=== PATIENT | male | born 1965 | race Caucasian/White ===

== ENCOUNTER 2016-05-15 04:31 | Inpatient (IN) | payer OTHER ==
[~2016-05-15] VITALS: Ht 177.8 cm; Wt 122.9 kg
[~2016-05-15 04:31] MED LIST: AMLO10TA4 PO; ARIP5TAB6 PO; ASPI-482 PO; BUPR300T4 PO; CEPH-264 PO; DEXT10TA2 PO; ESCI20TA PO; FAMO-63 NG; FLUT9.9S NS; Fentanyl TD; GABA-586 PO; HYDR-2666 PO; Hydrochlorothiazide PO; LABE200T24 PO; LORA2TAB PO; METH-38 PO; MORP15TA PO; MORP15TA3 PO; MULT-91 PO; NORT25CA PO; NYST60PO TP; POLY17PO5 PO; POTA20TA4 PO; SENN1TAB7 PO; SIMV40TA3 PO; TRAZ50TA15 PO; VALS160T3 NG; VENTOLIN HFA18 GM IH
[2016-05-15 05:20] LABS: OBC FLU VALID
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
[2016-05-15 05:51] LABS: BILIRUBIN,URINE NEGATIVE (NEG); GLUCOSE,URINE NEGATIVE (NEG); NITRITE,URINE NEGATIVE (NEG); PH,URINE 5.5; PROTEIN,URINE NEGATIVE (NEG-TRACE); UROBILINOGEN,URINE 0.2 mg/dL (0.2 mg/dL)
[2016-05-15] MEDS ORDERED: IV NORMAL SALINE 1000ML BAG 1,000 ML IV ONE (06:00)
[2016-05-15 06:07] LABS: BACTERIA,URINE 0 /HPF (0-FEW); RBC,URINE 0 /HPF (0-2); SQUAMOUS EPITHELIAL CELL,UR FEW /LPF; WBC,URINE 0 /HPF (0-4)
[2016-05-15 06:51] LABS: BASO # 0.1 x10^3/uL (0.0-0.2); BASO % 0 % (0-3); EOS % 0 % (0-3); HEMATOCRIT 38.6 % (39.0-53.0); HEMOGLOBIN 12.5 g/dL (13.0-17.5); LYMPH # 0.5 x10^3/uL (1.0-4.8); LYMPH % 2 % (24-48); MEAN CORPUSCULAR HEMOGLOBIN 30 pg (25-35); MEAN CORPUSCULAR HGB CONC 32 g/dL (31-37); MEAN CORPUSCULAR VOLUME 91 fL (79-100); MONO % 4 % (0-9); NEUT % 93 % (31-73); PLATELET COUNT 211 x10^3/uL (140-400); RED BLOOD COUNT 4.25 x10^6/uL (4.30-5.70); RED CELL DISTRIBUTION WIDTH 14.9 % (11.5-14.5); WHITE BLOOD COUNT 20.2 x10^3/uL (4.0-11.0)
[2016-05-15] MEDS ORDERED: CONTRAST GIVEN MC PRN (07:00)
[2016-05-15] MEDS ORDERED: IOHEXOL 300 MG/ML 75 ML VIAL IV ONE (07:00)
[2016-05-15 07:04] LABS: CALCIUM 8.8 mg/dL (8.5-10.1); CREATININE 1.8 mg/dL (0.7-1.3); GFR 39.8; POTASSIUM 4.2 mmol/L (3.5-5.1)
[2016-05-15] MEDS: FENTANYL PF 100 MCG/2 ML VIAL. IV PRN ×2 (07:09→08:01)
[2016-05-15 07:10] LABS: ALBUMIN 3.6 g/dL (3.4-5.0); DIRECT BILIRUBIN 0.3 mg/dL (0.0-0.2); TOTAL BILIRUBIN 1.7 mg/dL (0.2-1.0); TOTAL PROTEIN 7.1 g/dL (6.4-8.2)
[2016-05-15] MEDS ORDERED: ONDANSETRON PF 4 MG/2 ML VIAL. IV ONE (07:15)
[2016-05-15 08:03] LABS: PLT ESTIMATE ADEQUATE (ADEQUATE)
--- NOTE | 2016-05-15 08:10 | RAD ---
Indication: Abdominal pain for 2 days, flank pain and fever. Technique: Axial images and coronal and sagittal reformatted images are provided. No comparison is available. One or more of the following individualized dose reduction techniques were utilized for this examination: 1. Automated exposure control 2. Adjustment of the mA and/or kV according to patient size 3. Use of iterative reconstruction technique Findings: There is atelectasis or scarring in the left lung base. There is no pleural effusion. The heart is not enlarged. Solid organ evaluation is limited without IV contrast. There is moderate fatty infiltration of the liver. Gallbladder, pancreas, and adrenals are grossly unremarkable. Coil artifact is noted near the splenic hilum. Splenule is noted. Aorta is normal caliber. Mildly prominent retroperitoneal lymph nodes may be reactive. There is no obstructing or nonobstructing renal calculus. There is mild stranding in the perinephric fat bilaterally. Lack of IV or oral contrast limits evaluation of bowel. There is no small bowel obstruction or definite mural thickening. A normal appendix is noted. Colon is grossly unremarkable. Bladder is unremarkable. Mildly prominent pelvic lymph nodes have normal fatty notches, may be reactive. Prostate is not enlarged. Small fat-containing right inguinal hernia is noted. Calcified phleboliths are noted. There are degenerative changes in the spine. Impression: 1. No obstructing or nonobstructing renal calculus. 2. Mildly prominent retroperitoneal and pelvic lymph nodes, no pathologically enlarged lymph node. These may be reactive. 6 month follow-up may be of benefit. 3. Fatty infiltration of the liver.
--- NOTE | 2016-05-15 08:18 | RAD ---
Indication: Cough for one day. Technique: Upright portable chest radiograph was obtained. Comparison is from November 09, 2014. Findings: Extensive internal fixation hardware is noted, similarly positioned to prior. This includes malleable plates along the left ribs. Bilateral plates along the clavicles are noted. Scapular plates are noted. One of the scapular plates on the right is fractured, similar appearance and position to prior. The lungs are clear. The heart is not enlarged. There is no heart failure. Impression: No acute thoracic findings.
[2016-05-15] MEDS ORDERED: PIPERACILLIN/TAZOBACTAM 3.375 GM in IV NORMAL SALINE 50ML 50 ML IV ONE (08:45)
[2016-05-15] MEDS ORDERED: ACETAMINOPHEN 325 MG TABLET. PO PRN ×2 (09:00→12:00)
[2016-05-15] MEDS ORDERED: FENTANYL PF 100 MCG/2 ML VIAL. IV PRN (09:00)
[2016-05-15] MEDS ORDERED: ONDANSETRON PF 4 MG/2 ML VIAL. IV PRN (09:00)
--- NOTE | 2016-05-15 09:07 | EKG ---
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
--- NOTE | 2016-05-15 10:14 | ACF ---
Admit Criteria Forms Admit Criteria Forms Admit Criteria Forms SEPSIS and OTHER FEBRILE ILLNESS, W/O FOCAL INFECTION Clinical Indications for Admission to Inpatient Care ( Place 'X' for any and all applicable criteria): Admission is indicated for ANY ONE of the following (1)(2)(3)(4): [ ] I. Bacteremia [X ]II. Suspected or identified specific infection requiring hospitalization (eg, meningitis, endocarditis) [ ]III. Hemodynamic instability [ ]IV. Altered mental status [ ]V. Failure or unavailability of outpatient antimicrobial treatment [ ]. Hypoxemia [ ]VII. Seizures [ ]VIII. High-risk febrile neutropenia [ ]IX. Need for parenteral antibiotic in patient who is likely to abuse vascular access device (eg, injection drug user) [A](7) [ ]X. Temperature greater than 104.9 degrees F (40.5 degrees C) (oral) [ X]XI. Inpatient admission required rather than observation care because of ANY ONE of the following: [ ]1) Specific infection identified that is too severe for outpatient treatment or observation care trial [ ]2) Metabolic disorder (eg, hypoglycemia, hyperglycemia, metabolic acidosis) that is severe or persistent [ ]3) Temperature greater than 103.1 degrees F (39.5 degrees C) ( oral) that is not responsive to observation care treatment [ ]4) IV fluid to replace significant ongoing (eg, for over 24 hours) losses (> 3 L/m2 per day) [ ]5) Supplemental oxygen or respiratory treatments for over 24 hours that is performable only in acute inpatient setting [ ]6) Parenteral nutrition regimen need that must be implemented on inpatient basis [ ]7) Strict or protective (eg, laminar flow) isolation [X ]8) Other condition, treatment or monitoring requiring inpatient admission Extended stay beyond goal length of stay may be needed for(1)(3) [ ]a) Sepsis or septic shock(22) [ ]b) Positive blood cultures [ ]c) Insufficient oral intake [ ]d) High-risk febrile neutropenia(29)(30) [ ]e) Continued fever and clinical instability [ ]f) Clinically active comorbid illness (e.g,heart failure, renal failure , diabetes) The original [employer] content created by [email or web address] has been revised. The portions of the content which have been revised are identified through the use of italic text or in bold, and [facility] has neither reviewed nor approved the modified material. All other unmodified content is copyright [facility]. Please see references footnoted in the original [facility] edition 2016 VIVIANE CADET May 15, 2016 10:14
[2016-05-15] MEDS: IV NORMAL SALINE 1000ML BAG 1,000 ML IV SCH ×3 (11:12→16:56)
[2016-05-15 11:45] VITALS: BP 112/65
[2016-05-15] MEDS: PIPERACILLIN/TAZOBACTAM 3.375 GM in IV NORMAL SALINE 50ML 50 ML IV SCH ×2 (14:00→20:00)
--- NOTE | 2016-05-15 14:05 | PDOC ---
Infectious Disease Note Vital Sign Vital Signs Vital Signs Date Time Temp Pulse Resp B/P Pulse Ox O2 Delivery O2 Flow Rate FiO2 05/15/16 11:45 98.4 79 20 112/65 95 Room Air 98.4 05/15/16 10:30 1 Labs Lab Laboratory Tests Test 05/15/16 04:40 05/15/16 05:31 05/15/16 06:38 Influenza Type A Antigen Negative (NEGATIVE) Influenza Type B Antigen Negative (NEGATIVE) Urine Collection Type Unknown Urine Color Yellow Urine Clarity Clear Urine pH 5.5 Urine Specific Kyle <=1.005 Urine Protein Negativemg/dL (NEG-TRACE) Urine Glucose (UA) Negativemg/dL (NEG) Urine Ketones (Stick) Negativemg/dL (NEG) Urine Blood Negative (NEG) Urine Nitrite Negative (NEG) Urine Bilirubin Negative (NEG) Urine Urobilinogen Dipstick 0.2mg/dL (0.2 mg/dL) Urine Leukocyte Esterase Negative (NEG) Urine RBC 0/HPF (0-2) Urine WBC 0/HPF (0-4) Urine Squamous Epithelial Cells Few/LPF Urine Bacteria 0/HPF (0-FEW) White Blood Count 20.2x10^3/uL (4.0-11.0) Red Blood Count 4.25x10^6/uL (4.30-5.70) Hemoglobin 12.5g/dL (13.0-17.5) Hematocrit 38.6% (39.0-53.0) Mean Corpuscular Volume 91fL (79-100) Mean Corpuscular Hemoglobin 30pg (25-35) Mean Corpuscular Hemoglobin Concent 32g/dL (31-37) Red Cell Distribution Width 14.9% (11.5-14.5) Platelet Count 211x10^3/uL (140-400) Neutrophils (%) (Auto) 93% (31-73) Lymphocytes (%) (Auto) 2% (24-48) Monocytes (%) (Auto) 4% (0-9) Eosinophils (%) (Auto) 0% (0-3) Basophils (%) (Auto) 0% (0-3) Neutrophils # (Auto) 18.8x10^3uL (1.8-7.7) Lymphocytes # (Auto) 0.5x10^3/uL (1.0-4.8) Monocytes # (Auto) 0.8x10^3/uL (0.0-1.1) Eosinophils # (Auto) 0.0x10^3/uL (0.0-0.7) Basophils # (Auto) 0.1x10^3/uL (0.0-0.2) Segmented Neutrophils % 68% (35-66) Band Neutrophils % 26% (0-9) Lymphocytes % 3% (24-48) Monocytes % 3% (0-10) Platelet Estimate Adequate (ADEQUATE) Platelet Clumps, EDTA Present Sodium Level 136mmol/L (136-145) Potassium Level 4.2mmol/L (3.5-5.1) Chloride Level 100mmol/L (98-107) Carbon Dioxide Level 27mmol/L (21-32) Anion Gap 9 (6-14) Blood Urea Nitrogen 25mg/dL (8-26) Creatinine 1.8mg/dL (0.7-1.3) Estimated GFR (Cockcroft-Gault) 39.8 Glucose Level 110mg/dL (70-99) Lactic Acid Level 1.6mmol/L (0.4-2.0) Calcium Level 8.8mg/dL (8.5-10.1) Total Bilirubin 1.7mg/dL (0.2-1.0) Direct Bilirubin 0.3mg/dL (0.0-0.2) Aspartate Amino Transf (AST/SGOT) 30U/L (15-37) Alanine Aminotransferase (ALT/SGPT) 35U/L (16-63) Alkaline Phosphatase 51U/L (46-116) Troponin I Quantitative < 0.017ng/mL (0.000-0.055) Total Protein 7.1g/dL (6.4-8.2) Albumin 3.6g/dL (3.4-5.0) Lipase 122U/L (73-393) Objective Assessment Sepsis Cellulitis of left leg, rapid onset superimposed on chronic lymphedema SHIRA Antibiotic allergy to imipenem/cilastatin-hives. Vanc-Caleb syndrome Flank pain w/ neg CT. improved Plan Plan of Care Zyvox and Zosyn per Dr. Beltrán f/u labs/BC Monitor response Thank you [id number] Attending Co-Sign The patient was seen and interviewed as well as examined at the bedside. The chart was reviewed. The case was discussed. Agree with the plan of care. LATASHA YOUNG APRN May 15, 2016 14:05 GAEL BELTRÁN MD May 15, 2016 14:20
--- NOTE | 2016-05-15 14:48 | PDOC ---
Provider Note Provider Note history and physical dictated # [id number] EZEKIEL MA MD May 15, 2016 14:48
[2016-05-15 15:00] VITALS: BP 124/70
[2016-05-15] MEDS: ESCITALOPRAM 10 MG TABLET. PO SCH (15:08)
[2016-05-15 15:39] VITALS: BP 112/65
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
[2016-05-15 19:00] VITALS: BP 148/91
--- NOTE | 2016-05-15 19:39 | RAD ---
PROCEDURE Left lower extremity venous duplex ultrasound. HISTORY Swelling and pain. TECHNIQUE Grayscale, color flow, and spectral waveform analysis was performed. COMPARISON None. FINDINGS All visualized vein segments are compressible. There is normal phasicity of waveform and augmentation. Inguinal lymph nodes with normal fatty notches are mildly prominent. IMPRESSION 1. Negative for deep vein thrombosis in the left lower extremity. 2. Mildly prominent inguinal lymph nodes demonstrate normal fatty notches, may be reactive. Electronically signed by: Ramses Harrington MD (May 15, 2016 19:37:04)
[2016-05-15] MEDS: ARIPIPRAZOLE 5 MG TABLET. PO SCH (21:00)
[2016-05-15] MEDS: ATORVASTATIN CALCIUM 10 MG TABLET. PO SCH (21:00)
[2016-05-15] MEDS ORDERED: HYDROCODONE/APAP 5/325MG TABLET. PO PRN (22:30)
[2016-05-15 22:59] VITALS: BP 140/87
[2016-05-16] MEDS: IV NORMAL SALINE 1000ML BAG 1,000 ML IV SCH ×3 (00:56→14:25)
[2016-05-16] MEDS: HYDROCODONE/APAP 5/325MG TABLET. PO PRN ×3 (01:51→23:08)
[2016-05-16] MEDS: PIPERACILLIN/TAZOBACTAM 3.375 GM in IV NORMAL SALINE 50ML 50 ML IV SCH ×4 (01:57→20:27)
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
[2016-05-16 07:00] VITALS: BP 114/72
[2016-05-16] MEDS: ESCITALOPRAM 10 MG TABLET. PO SCH (10:35)
[2016-05-16 11:00] VITALS: BP 125/81
[2016-05-16] MEDS ORDERED: LIDOCAINE 1% / SOD BICARB 8.4% 20 ML VIAL. IJ ONE ×2 (11:28→12:15)
--- NOTE | 2016-05-16 11:44 | PDOC ---
PROGRESS NOTES Subjective Subjective unable to get iv access. radiologist to attempt picc line or cental line today. says he wants to go to another hospital if radiologist cant get iv access. lab ordered but not done. alert. afebrile this morning. temp 99.7 last night.. not tachycardic. venous doppler LLE neg for DVT. discussed with . takes lorazepam 0.5 mg prn at home prescribed by his psychiatrist , dr. Peter and will order it. Objective Objective Vital Signs Date Time Temp Pulse Resp B/P Pulse Ox O2 Delivery O2 Flow Rate FiO2 05/16/16 10:35 18 95 Room Air 05/16/16 07:00 97.7 86 114/72 97.7 05/15/16 20:25 1.0 Intake and Output 05/16/16 07:00 Intake Total 4750 ml Balance 4750 ml Intake Oral 3400 ml IV Total 1350 ml # Voids 2 Physical Exam Abdomen: Soft Heart: Regular rate, Normal S1, Normal S2 Extremities: Other (lymphedema LLE with erythema) General: Alert, Oriented X3, Cooperative, No acute distress HEENT: Mucous membr. moist/pink Lungs: Clear to auscultation, Normal air movement Neck: Supple, No JVD, No thyromegaly Neuro: Normal gait, Normal speech, Normal tone, Sensation intact, Reflexes 2+ Psych/Mental Status: Mental status NL, Mood NL Skin: Other (redness left leg. less redness in medial thigh. soft tissue swelling medial thigh. ) Assessment Assessment Problems Medical Problems:1. Sepsis resolved 2. Cellulitis involving the left lower extremity. 3. Leukocytosis. 4. Chronic lymphedema of the left lower extremity. 5. Acute kidney injury, most likely secondary to dehydration, but he was taking some [id number] anti-inflammatory drugs too lately. 6. Hypertension. 7. History of depression. (1) Cellulitis Status: Acute (2) Sepsis Status: Acute Plan Plan of Care central line IV or PICC per IR zyvox po awaiting iv access discussed with ID EAR SPECIALIST push fluids iv fluids when iv access available lab not done yet bumex and valsartan and kcl discontinued iv zosyn and iv zyvox when iv access available Comment Review of Relevant I have reviewed the following items karen (where applicable) has been applied. Labs Laboratory Tests Test 05/15/16 04:40 3/18/17 05:31 05/15/16 06:38 Influenza Type A Antigen Negative (NEGATIVE) Influenza Type B Antigen Negative (NEGATIVE) Urine Collection Type Unknown Urine Color Yellow Urine Clarity Clear Urine pH 5.5 Urine Specific [place] <=1.005 Urine Protein Negativemg/dL (NEG-TRACE) Urine Glucose (UA) Negativemg/dL (NEG) Urine Ketones (Stick) Negativemg/dL (NEG) Urine Blood Negative (NEG) Urine Nitrite Negative (NEG) Urine Bilirubin Negative (NEG) Urine Urobilinogen Dipstick 0.2mg/dL (0.2 mg/dL) Urine Leukocyte Esterase Negative (NEG) Urine RBC 0/HPF (0-2) Urine WBC 0/HPF (0-4) Urine Squamous Epithelial Cells Few/LPF Urine Bacteria 0/HPF (0-FEW) White Blood Count 20.2x10^3/uL (4.0-11.0) Red Blood Count 4.25x10^6/uL (4.30-5.70) Hemoglobin 12.5g/dL (13.0-17.5) Hematocrit 38.6% (39.0-53.0) Mean Corpuscular Volume 91fL (79-100) Mean Corpuscular Hemoglobin 30pg (25-35) Mean Corpuscular Hemoglobin Concent 32g/dL (31-37) Red Cell Distribution Width 14.9% (11.5-14.5) Platelet Count 211x10^3/uL (140-400) Neutrophils (%) (Auto) 93% (31-73) Lymphocytes (%) (Auto) 2% (24-48) Monocytes (%) (Auto) 4% (0-9) Eosinophils (%) (Auto) 0% (0-3) Basophils (%) (Auto) 0% (0-3) Neutrophils # (Auto) 18.8x10^3uL (1.8-7.7) Lymphocytes # (Auto) 0.5x10^3/uL (1.0-4.8) Monocytes # (Auto) 0.8x10^3/uL (0.0-1.1) Eosinophils # (Auto) 0.0x10^3/uL (0.0-0.7) Basophils # (Auto) 0.1x10^3/uL (0.0-0.2) Segmented Neutrophils % 68% (35-66) Band Neutrophils % 26% (0-9) Lymphocytes % 3% (24-48) Monocytes % 3% (0-10) Platelet Estimate Adequate (ADEQUATE) Platelet Clumps, EDTA Present Sodium Level 136mmol/L (136-145) Potassium Level 4.2mmol/L (3.5-5.1) Chloride Level 100mmol/L (98-107) Carbon Dioxide Level 27mmol/L (21-32) Anion Gap 9 (6-14) Blood Urea Nitrogen 25mg/dL (8-26) Creatinine 1.8mg/dL (0.7-1.3) Estimated GFR (Cockcroft-Gault) 39.8 Glucose Level 110mg/dL (70-99) Lactic Acid Level 1.6mmol/L (0.4-2.0) Calcium Level 8.8mg/dL (8.5-10.1) Total Bilirubin 1.7mg/dL (0.2-1.0) Direct Bilirubin 0.3mg/dL (0.0-0.2) Aspartate Amino Transf (AST/SGOT) 30U/L (15-37) Alanine Aminotransferase (ALT/SGPT) 35U/L (16-63) Alkaline Phosphatase 51U/L (46-116) Troponin I Quantitative < 0.017ng/mL (0.000-0.055) Total Protein 7.1g/dL (6.4-8.2) Albumin 3.6g/dL (3.4-5.0) Lipase 122U/L (73-393) Microbiology 05/15/16 Blood Culture - Preliminary, Resulted NO GROWTH AFTER 1 DAY Medications Current Medications Sodium Chloride (Iv Sodium Chloride 0.9% 1000ml Bag) 1,000 ml @ 1,000 mls/hr 1X ONCE IV Last administered on 05/15/16t 06:00; Start 05/15/16 at 06:00; Stop 05/15/16 at 06:59; Status DC Iohexol (Omnipaque 300 Mg/ml) 75 ml 1X ONCE IV ; Start 05/15/16 at 07:00; Stop 05/15/16 at 07:01; Status DC Info (Do NOT chart on this entry -- for MONITORING) 1 each PRN DAILY PRN MC SEE COMMENTS; Start 05/15/16 at 07:00; Stop 05/17/16 at 06:59 Fentanyl Citrate (Fentanyl 2ml Vial) 50 mcg PRN Q15MIN PRN IV PAIN GREATER THAN 3/10 Last administered on 05/15/16 08:01; Start 05/15/16 at 07:00; Stop at 06:59; Status DC Ondansetron HCl 4 mg 4 mg 1X ONCE IV Last administered on 05/15/16 07:09; Start 05/15/16 at 07:15; Stop 05/15/16 at 07:16; Status DC Linezolid 300 ml @ 300 mls/hr Q12HR IV ; Start 05/15/16 at 21:00 Piperacillin Sod/ Tazobactam Sod 3.375 gm/Sodium Chloride 50 ml @ 100 mls/hr Q6H IV ; Start 05/15/16 at 14:00 Linezolid 300 ml @ 300 mls/hr ONCE ONCE IV Last administered on 05/15/16 10: 00; Start 05/15/16 at 08:45; Stop 05/15/16 at 09:44; Status DC Piperacillin Sod/ Tazobactam Sod/ Sodium Chloride (Zosyn/Iv Sodium Chloride 0.9 % 50ml) 50 ml @ 100 mls/hr 1X ONCE IV Last administered on 05/15/16 09:15; Start 05/15/16 at 08:45; Stop 05/15/16 at 09:14; Status DC Ondansetron HCl (Zofran) 4 mg PRN Q8HRS PRN IV NAUSEA/VOMITING; Start 05/15/16 at 09:00; Stop 05/16/16 at 08:59; Status DC Fentanyl Citrate 50 mcg 50 mcg PRN Q2HR PRN IV PAIN; Start 05/15/16 at 09:00; Stop 05/16/16 at 08:59; Status DC Sodium Chloride (Iv Sodium Chloride 0.9% 1000ml Bag) 1,000 ml @ 125 mls/hr Q8H IV Last administered on 05/15/16 11:12; Start 05/15/16 at 08:56; Stop at 08:55; Status DC Acetaminophen (Tylenol) 650 mg PRN Q4HRS PRN PO FEVER; Start 05/15/16 at 09:00 ; Stop 05/15/16 at 12:10; Status DC Escitalopram Oxalate (Lexapro) 40 mg DAILY PO Last administered on 05/16/16 10 :35; Start 05/15/16 at 12:30 Acetaminophen 650 mg 650 mg PRN Q4HRS PRN PO MILD PAIN / TEMP; Start 05/15/16 at 12:00 Sodium Chloride (Iv Sodium Chloride 0.9% 1000ml Bag) 1,000 ml @ 75 mls/hr [id number] IV ; Start 05/15/16 at 14:30 Aripiprazole (Abilify) 5 mg QHS PO ; Start 05/15/16 at 21:00 Atorvastatin Calcium (Lipitor) 10 mg QHS PO ; Start 05/15/16 at 21:00 Acetaminophen/ Hydrocodone Bitart (Lortab 5/325) 2 tab PRN Q4HRS PRN PO SEVERE PAIN Last administered on 05/16/16 10:35; Start 05/15/16 at 22:30 Acetaminophen/ Hydrocodone Bitart (Lortab 5/325) 1 tab PRN Q4HRS PRN PO MODERATE PAIN; Start 05/15/16 at 22:30 Active Scripts Active Hydrocodone-Apap 5-325 (Hydrocodone Bit/Acetaminophen) 1 Each Tablet 1 Tab PO PRN Q6HRS PRN Keflex (Cephalexin) 500 Mg Capsule 1 Cap PO BID Diovan (Valsartan) 160 Mg Tablet 320 Mg NG DAILY Klor-Con M20 (Potassium Chloride) 20 Meq Tablet.er 20 Meq PO BIDWMEALS Nystop (Nystatin) 1 Dom Odm 1 Dom TP BID Morphine Sulfate 15 Mg Tablet 15 Mg PO Q6HRS PRN Trandate (Labetalol Hcl) 200 Mg Tablet 200 Mg PO BID [Hydrochlorothiazide] 25 MG Tablet 25 Mg PO DAILY [Fentanyl] 1 PATCH Patch 1 Patch TD Q3DAYS Pepcid (Famotidine) 20 Mg Tablet 20 Mg NG BID Norvasc (Amlodipine Besylate) 10 Mg Tablet 10 Mg PO DAILY Reported Escitalopram Oxalate 20 Mg Tablet 1 Tab PO DAILY Vitals/I & O Vital Sign - Last 24 Hours 05/15/16 05/15/16 05/15/16 05/15/16 11:45 15:00 15:39 19:00 Temp 98.4 98.5 98.4 97.7 98.4 98.5 98.4 97.7 Pulse 79 79 79 90 Resp 20 14 20 B/P 112/65 124/70 112/65 148/91 Pulse Ox 95 97 95 100 O2 Delivery Room Air Room Air Room Air O2 Flow Rate 1.0 05/15/16 05/15/16 05/16/16 05/16/16 20:25 22:59 01:51 03:15 Temp 99.7 99.7 Pulse 97 Resp 18 22 B/P 140/87 Pulse Ox 97 O2 Delivery Room Air Room Air Room Air O2 Flow Rate 1.0 05/16/16 05/16/16 07:00 10:35 Temp 97.7 97.7 Pulse 86 Resp 16 18 B/P 114/72 Pulse Ox 95 95 O2 Delivery Room Air Room Air Intake and Output 05/15/16 05/15/16 05/16/16 15:00 23:00 07:00 Intake Total 1830 ml 2920 ml Balance 1830 ml 2920 ml EZEKIEL MA MD May 16, 2016 11:44
--- NOTE | 2016-05-16 12:13 | PDOC ---
Exam Real Estate Utilization Officer Real Estate Utilization Officer Mo Web Designer Web Designer Kei Pre-Procedure Diagnosis Pre-Procedure Diagnosis need for central venous access Post-Procedure Diagnosis Post-Procedure Diagnosis same Procedure Performed Procedure Performed placement of right IJ central line Type of Anesthesia Type of Anesthesia local Estimated Blood Loss EBL: 2cc Specimens Specimans none Drain/Tubes Drains/Tubes none Condition of Patient Condition of Patient stable Disposition Disposition return to floor VANE DRAKE MD May 16, 2016 12:13
--- NOTE | 2016-05-16 12:13 | PDOC ---
Infectious Disease Note Subjective Subjective Wants to go another hospital Feels left leg is worse, non specific IV infiltrated and apparently missed dose of abx. No fever last 24 hours ROS ROS GEN: Denies chills, sweats HEENT: Denies sore throat CV: Denies chest pain RESP: Denies shortness of air, cough GI: Denies n/v/d Vital Sign Vital Signs Vital Signs Date Time Temp Pulse Resp B/P Pulse Ox O2 Delivery O2 Flow Rate FiO2 05/16/16 10:35 18 95 Room Air 05/16/16 07:00 97.7 86 114/72 97.7 05/15/16 20:25 1.0 Physical Exam PHYSICAL EXAM GENERAL: Lying down, NAD HEENT: OC/OP clear LUNGS: Clear HEART: S1S2, no gallop, no murmur ABD: Soft, NT EXT: BLE trace edema. LLE less red, warm and swollen RENTAL SALES REPRESENTATIVE: Alert, slow verbal responses SKIN: No rash No IV access Labs Lab IMPRESSION 1. Negative for deep vein thrombosis in the left lower extremity. 2. Mildly prominent inguinal lymph nodes demonstrate normal fatty notches, may be reactive. Micro BLOOD CULTURE Preliminary NO GROWTH AFTER 1 DAY Objective Assessment Sepsis Cellulitis of left leg, rapid onset superimposed on chronic lymphedema -neg DVT Leukocytosis SHIRA Antibiotic allergy to imipenem/cilastatin-hives. Vanc-Caleb's syndrome Flank pain w/ neg CT. improved Plan Plan of Care Zyvox and Zosyn await today's labs results Await IR to place line D/w Dr Potter Attending Co-Sign The patient was seen and interviewed as well as examined at the bedside. The chart was reviewed. The case was discussed. Agree with the plan of care. LATASHA YOUNG APRN May 16, 2016 12:13 GAEL BELTRÁN MD May 16, 2016 12:18
[2016-05-16] MEDS ORDERED: HEPARIN PF 500 UNIT/5 ML DISP.SYRIN. IV ONE (12:15)
--- NOTE | 2016-05-16 12:25 | RAD ---
Placement of right internal jugular central venous catheter 05/16/2016 Indication: Need for central venous access. Sepsis. Discussion: Informed oral and written consent were obtained. A timeout procedure was performed. Patient was prepped and draped in the usual sterile fashion. Real-time ultrasound demonstrated a patent right internal jugular vein. Patient was prepped and draped in usual sterile fashion. 1% lidocaine used for local anesthesia. Using real-time ultrasound guidance the right internal jugular vein was accessed using micropuncture technique. Reference ultrasound images were saved in the medical record. No 35 guidewire was advanced into the IVC. Over this wire following dilatation of triple lumen central venous catheter was advanced to the cavoatrial junction. Catheter was found to flush and aspirate normally. Catheter secured in place and a sterile dressing was applied. Sedation: Local anesthesia only Fluoroscopy time: 0.2 minutes Exposures: 1 Impression: Successful ultrasound and fluoroscopic guided right internal jugular central venous line placement
[2016-05-16] MEDS: LORAZEPAM 0.5 MG TABLET. PO PRN ×2 (12:54→23:08)
[2016-05-16 13:00] LABS: BASO # 0.1 x10^3/uL (0.0-0.2); BASO % 1 % (0-3); EOS % 3 % (0-3); HEMOGLOBIN 12.1 g/dL (13.0-17.5); LYMPH # 0.8 x10^3/uL (1.0-4.8); LYMPH % 6 % (24-48); MEAN CORPUSCULAR HEMOGLOBIN 30 pg (25-35); MEAN CORPUSCULAR HGB CONC 33 g/dL (31-37); MEAN CORPUSCULAR VOLUME 90 fL (79-100); MONO % 7 % (0-9); NEUT % 83 % (31-73); PLATELET COUNT 205 x10^3/uL (140-400); RED CELL DISTRIBUTION WIDTH 15.1 % (11.5-14.5); WHITE BLOOD COUNT 12.5 x10^3/uL (4.0-11.0)
[2016-05-16 13:09] LABS: CALCIUM 8.5 mg/dL (8.5-10.1); CREATININE 1.1 mg/dL (0.7-1.3); GFR 70.3; POTASSIUM 3.9 mmol/L (3.5-5.1)
[2016-05-16 15:00] VITALS: BP 123/82
[2016-05-16 19:00] VITALS: BP 117/72
[2016-05-16] MEDS: ARIPIPRAZOLE 5 MG TABLET. PO SCH (22:00)
[2016-05-16] MEDS: ATORVASTATIN CALCIUM 10 MG TABLET. PO SCH (22:00)
[2016-05-16 22:42] VITALS: BP 129/76
[2016-05-17] MEDS: PIPERACILLIN/TAZOBACTAM 3.375 GM in IV NORMAL SALINE 50ML 50 ML IV SCH ×4 (02:01→20:45)
[2016-05-17] MEDS: IV NORMAL SALINE 1000ML BAG 1,000 ML IV SCH (05:47)
[2016-05-17 06:02] LABS: BASO % 0 % (0-3); EOS % 4 % (0-3); HEMATOCRIT 34.1 % (39.0-53.0); HEMOGLOBIN 11.2 g/dL (13.0-17.5); LYMPH # 1.1 x10^3/uL (1.0-4.8); LYMPH % 11 % (24-48); MEAN CORPUSCULAR HEMOGLOBIN 30 pg (25-35); MEAN CORPUSCULAR HGB CONC 33 g/dL (31-37); MEAN CORPUSCULAR VOLUME 90 fL (79-100); MONO % 8 % (0-9); NEUT % 77 % (31-73); PLATELET COUNT 203 x10^3/uL (140-400); RED BLOOD COUNT 3.81 x10^6/uL (4.30-5.70); RED CELL DISTRIBUTION WIDTH 14.9 % (11.5-14.5); WHITE BLOOD COUNT 10.7 x10^3/uL (4.0-11.0)
[2016-05-17 06:15] LABS: CALCIUM 8.4 mg/dL (8.5-10.1); CREATININE 1.1 mg/dL (0.7-1.3); GFR 70.3; POTASSIUM 3.9 mmol/L (3.5-5.1)
[2016-05-17 07:00] VITALS: BP 129/78
[2016-05-17] MEDS: ESCITALOPRAM 10 MG TABLET. PO SCH (08:20)
--- NOTE | 2016-05-17 09:01 | PDOC ---
PROGRESS NOTES Subjective Subjective feels better. discussed with patients and dr. danielle conway. cellulitis LLE improved. afebrile. wbc better. renal function back to baseline. blood pressure is okay. lab reviewed. Objective Objective Vital Signs Date Time Temp Pulse Resp B/P Pulse Ox O2 Delivery O2 Flow Rate FiO2 05/17/16 07:00 98.0 75 18 129/78 94 Room Air 98.0 05/16/16 20:20 1.0 Intake and Output 05/17/16 07:00 Intake Total 1850 ml Balance 1850 ml Intake Oral 500 ml IV Total 1350 ml # Voids 4 Physical Exam Abdomen: Soft Heart: Regular rate, Normal S1, Normal S2 Extremities: Other (lymphedema LLE) General: Alert HEENT: Atraumatic Lungs: Clear to auscultation Neuro: Normal speech Psych/Mental Status: Mental status NL Skin: Other (erythema left calf better and resolved medial thigh) Assessment Assessment Problems Medical Problems:1. Sepsis resolved 2. Cellulitis involving the left lower extremity. improved 3. Leukocytosis improved 4. Chronic lymphedema of the left lower extremity. 5. Acute kidney injury resolved 6. Hypertension. 7. History of depression. (1) Cellulitis Status: Acute (2) Sepsis Status: Acute Plan Plan of Care d/c iv fluids continue iv antibiotics elevate legs resume bumex and kcl lab tomorrow anticipate dismissal tomorrow on oral antibiotics Comment Review of Relevant I have reviewed the following items karen (where applicable) has been applied. Labs Laboratory Tests Test 05/16/16 11:50 05/17/16 05:50 White Blood Count 12.5x10^3/uL (4.0-11.0) 10.7x10^3/uL (4.0-11.0) Red Blood Count 4.10x10^6/uL (4.30-5.70) 3.81x10^6/uL (4.30-5.70) Hemoglobin 12.1g/dL (13.0-17.5) 11.2g/dL (13.0-17.5) Hematocrit 37.0% (39.0-53.0) 34.1% (39.0-53.0) Mean Corpuscular Volume 90fL (79-100) 90fL (79-100) Mean Corpuscular Hemoglobin 30pg (25-35) 30pg (25-35) Mean Corpuscular Hemoglobin Concent 33g/dL (31-37) 33g/dL (31-37) Red Cell Distribution Width 15.1% (11.5-14.5) 14.9% (11.5-14.5) Platelet Count 205x10^3/uL (140-400) 203x10^3/uL (140-400) Neutrophils (%) (Auto) 83% (31-73) 77% (31-73) Lymphocytes (%) (Auto) 6% (24-48) 11% (24-48) Monocytes (%) (Auto) 7% (0-9) 8% (0-9) Eosinophils (%) (Auto) 3% (0-3) 4% (0-3) Basophils (%) (Auto) 1% (0-3) 0% (0-3) Neutrophils # (Auto) 10.4x10^3uL (1.8-7.7) 8.3x10^3uL (1.8-7.7) Lymphocytes # (Auto) 0.8x10^3/uL (1.0-4.8) 1.1x10^3/uL (1.0-4.8) Monocytes # (Auto) 0.9x10^3/uL (0.0-1.1) 0.9x10^3/uL (0.0-1.1) Eosinophils # (Auto) 0.4x10^3/uL (0.0-0.7) 0.4x10^3/uL (0.0-0.7) Basophils # (Auto) 0.1x10^3/uL (0.0-0.2) 0.0x10^3/uL (0.0-0.2) Sodium Level 140mmol/L (136-145) 141mmol/L (136-145) Potassium Level 3.9mmol/L (3.5-5.1) 3.9mmol/L (3.5-5.1) Chloride Level 102mmol/L (98-107) 106mmol/L (98-107) Carbon Dioxide Level 28mmol/L (21-32) 27mmol/L (21-32) Anion Gap 10 (6-14) 8 (6-14) Blood Urea Nitrogen 13mg/dL (8-26) 9mg/dL (8-26) Creatinine 1.1mg/dL (0.7-1.3) 1.1mg/dL (0.7-1.3) Estimated GFR (Cockcroft-Gault) 70.3 70.3 Glucose Level 146mg/dL (70-99) 118mg/dL (70-99) Calcium Level 8.5mg/dL (8.5-10.1) 8.4mg/dL (8.5-10.1) Laboratory Tests Test 05/16/16 11:50 05/17/16 05:50 White Blood Count 12.5x10^3/uL (4.0-11.0) 10.7x10^3/uL (4.0-11.0) Red Blood Count 4.10x10^6/uL (4.30-5.70) 3.81x10^6/uL (4.30-5.70) Hemoglobin 12.1g/dL (13.0-17.5) 11.2g/dL (13.0-17.5) Hematocrit 37.0% (39.0-53.0) 34.1% (39.0-53.0) Mean Corpuscular Volume 90fL (79-100) 90fL (79-100) Mean Corpuscular Hemoglobin 30pg (25-35) 30pg (25-35) Mean Corpuscular Hemoglobin Concent 33g/dL (31-37) 33g/dL (31-37) Red Cell Distribution Width 15.1% (11.5-14.5) 14.9% (11.5-14.5) Platelet Count 205x10^3/uL (140-400) 203x10^3/uL (140-400) Neutrophils (%) (Auto) 83% (31-73) 77% (31-73) Lymphocytes (%) (Auto) 6% (24-48) 11% (24-48) Monocytes (%) (Auto) 7% (0-9) 8% (0-9) Eosinophils (%) (Auto) 3% (0-3) 4% (0-3) Basophils (%) (Auto) 1% (0-3) 0% (0-3) Neutrophils # (Auto) 10.4x10^3uL (1.8-7.7) 8.3x10^3uL (1.8-7.7) Lymphocytes # (Auto) 0.8x10^3/uL (1.0-4.8) 1.1x10^3/uL (1.0-4.8) Monocytes # (Auto) 0.9x10^3/uL (0.0-1.1) 0.9x10^3/uL (0.0-1.1) Eosinophils # (Auto) 0.4x10^3/uL (0.0-0.7) 0.4x10^3/uL (0.0-0.7) Basophils # (Auto) 0.1x10^3/uL (0.0-0.2) 0.0x10^3/uL (0.0-0.2) Sodium Level 140mmol/L (136-145) 141mmol/L (136-145) Potassium Level 3.9mmol/L (3.5-5.1) 3.9mmol/L (3.5-5.1) Chloride Level 102mmol/L (98-107) 106mmol/L (98-107) Carbon Dioxide Level 28mmol/L (21-32) 27mmol/L (21-32) Anion Gap 10 (6-14) 8 (6-14) Blood Urea Nitrogen 13mg/dL (8-26) 9mg/dL (8-26) Creatinine 1.1mg/dL (0.7-1.3) 1.1mg/dL (0.7-1.3) Estimated GFR (Cockcroft-Gault) 70.3 70.3 Glucose Level 146mg/dL (70-99) 118mg/dL (70-99) Calcium Level 8.5mg/dL (8.5-10.1) 8.4mg/dL (8.5-10.1) Microbiology 05/15/16 Blood Culture - Preliminary, Resulted NO GROWTH AFTER 1 DAY Medications Current Medications Sodium Chloride (Iv Sodium Chloride 0.9% 1000ml Bag) 1,000 ml @ 1,000 mls/hr 1X ONCE IV Last administered on 05/15/16 06:00; Start 05/15/16 at 06:00; Stop 05/15/16 at 06:59; Status DC Iohexol (Omnipaque 300 Mg/ml) 75 ml 1X ONCE IV ; Start 05/15/16 at 07:00; Stop 05/15/16 at 07:01; Status DC Info (Do NOT chart on this entry -- for MONITORING) 1 each PRN DAILY PRN MC SEE COMMENTS; Start 05/15/16 at 07:00; Stop 05/17/16 at 06:59; Status DC Fentanyl Citrate (Fentanyl 2ml Vial) 50 mcg PRN Q15MIN PRN IV PAIN GREATER THAN 3/10 Last administered on 05/15/16 08:01; Start 05/15/16 at 07:00; Stop at 06:59; Status DC Ondansetron HCl 4 mg 4 mg 1X ONCE IV Last administered on 05/15/16 07:09; Start 05/15/16 at 07:15; Stop 05/15/16 at 07:16; Status DC Linezolid 300 ml @ 300 mls/hr Q12HR IV Last administered on 05/16/16 21:58; Start 05/15/16 at 21:00 Piperacillin Sod/ Tazobactam Sod 3.375 gm/Sodium Chloride 50 ml @ 100 mls/hr Q6H IV Last administered on 05/17/16 08:20; Start 05/15/16 at 14:00 Linezolid 300 ml @ 300 mls/hr ONCE ONCE IV Last administered on 05/15/16 10: 00; Start 05/15/16 at 08:45; Stop 05/15/16 at 09:44; Status DC Piperacillin Sod/ Tazobactam Sod/ Sodium Chloride (Zosyn/Iv Sodium Chloride 0.9 % 50ml) 50 ml @ 100 mls/hr 1X ONCE IV Last administered on 05/15/16 09:15; Start 05/15/16 at 08:45; Stop 05/15/16 at 09:14; Status DC Ondansetron HCl (Zofran) 4 mg PRN Q8HRS PRN IV NAUSEA/VOMITING; Start 05/15/16 at 09:00; Stop 05/16/16 at 08:59; Status DC Fentanyl Citrate 50 mcg 50 mcg PRN Q2HR PRN IV PAIN; Start 05/15/16 at 09:00; Stop 05/16/16 at 08:59; Status DC Sodium Chloride (Iv Sodium Chloride 0.9% 1000ml Bag) 1,000 ml @ 125 mls/hr Q8H IV Last administered on 05/15/16 11:12; Start 05/15/16 at 08:56; Stop at 08:55; Status DC Acetaminophen (Tylenol) 650 mg PRN Q4HRS PRN PO FEVER; Start 05/15/16 at 09:00 ; Stop 05/15/16 at 12:10; Status DC Escitalopram Oxalate (Lexapro) 40 mg DAILY PO Last administered on 05/17/16 08 :20; Start 05/15/16 at 12:30 Acetaminophen 650 mg 650 mg PRN Q4HRS PRN PO MILD PAIN / TEMP; Start 05/15/16 at 12:00 Sodium Chloride (Iv Sodium Chloride 0.9% 1000ml Bag) 1,000 ml @ 75 mls/hr [id number] IV Last administered on 05/17/16 05:47; Start 05/15/16 at 14:30 Aripiprazole (Abilify) 5 mg QHS PO Last administered on 05/16/16 22:00; Start 05/15/16 at 21:00 Atorvastatin Calcium (Lipitor) 10 mg QHS PO Last administered on 05/16/16 22: 00; Start 05/15/16 at 21:00 Acetaminophen/ Hydrocodone Bitart (Lortab 5/325) 2 tab PRN Q4HRS PRN PO SEVERE PAIN Last administered on 05/16/16 23:08; Start 05/15/16 at 22:30 Acetaminophen/ Hydrocodone Bitart (Lortab 5/325) 1 tab PRN Q4HRS PRN PO MODERATE PAIN; Start 05/15/16 at 22:30 Lidocaine/Sodium Bicarbonate 20 ml 20 ml STK-MED ONCE IJ ; Start 05/16/16 at 11: 28; Stop 05/16/16 at 11:29; Status DC Heparin Sodium/ Sodium Chloride 500 ml @ As Directed STK-MED ONCE .ROUTE ; Start 05/16/16 at 11:28; Stop 05/16/16 at 11:29; Status DC Lorazepam (Ativan) 0.5 mg PRN Q8HRS PRN PO ANXIETY / AGITATION Last administered on 05/16/16 23:08; Start 05/16/16 at 11:45 Lidocaine/Sodium Bicarbonate (Buffered Lidocaine 1%) 3 ml 1X ONCE IJ Last administered on 05/16/16 12:14; Start 05/16/16 at 12:15; Stop 05/16/16 at 12:16 ; Status DC Heparin Sodium (Porcine) (Hep Lock Adult) 500 unit 1X ONCE IV ; Start 05/16/16 at 12:15; Stop 05/16/16 at 12:16; Status DC Heparin Sodium/ Sodium Chloride 1,000 unit 1X ONCE IART Last administered on 12:17; Start 05/16/16 at 12:15; Stop 05/16/16 at 12:17; Status DC Active Scripts Active Hydrocodone-Apap 5-325 (Hydrocodone Bit/Acetaminophen) 1 Each Tablet 1 Tab PO PRN Q6HRS PRN Keflex (Cephalexin) 500 Mg Capsule 1 Cap PO BID Diovan (Valsartan) 160 Mg Tablet 320 Mg NG DAILY Klor-Con M20 (Potassium Chloride) 20 Meq Tablet.er 20 Meq PO BIDWMEALS Nystop (Nystatin) 1 Dom Dom 1 Dom TP BID Morphine Sulfate 15 Mg Tablet 15 Mg PO Q6HRS PRN Trandate (Labetalol Hcl) 200 Mg Tablet 200 Mg PO BID [Hydrochlorothiazide] 25 MG Tablet 25 Mg PO DAILY [Fentanyl] 1 PATCH Patch 1 Patch TD Q3DAYS Pepcid (Famotidine) 20 Mg Tablet 20 Mg NG BID Norvasc (Amlodipine Besylate) 10 Mg Tablet 10 Mg PO DAILY Reported Escitalopram Oxalate 20 Mg Tablet 1 Tab PO DAILY Vitals/I & O Vital Sign - Last 24 Hours 05/16/16 05/16/16 05/16/16 05/16/16 10:35 11:00 11:35 15:00 Temp 97.8 97.5 97.8 97.5 Pulse 81 79 Resp 18 16 18 16 B/P 125/81 123/82 Pulse Ox 95 92 92 94 O2 Delivery Room Air Room Air Room Air Room Air 05/16/16 05/16/16 05/16/16 05/16/16 19:00 20:20 22:42 23:08 Temp 98.6 98.8 98.6 98.8 Pulse 79 84 Resp 16 17 20 B/P 117/72 129/76 Pulse Ox 97 97 O2 Delivery Room Air Room Air Room Air Room Air O2 Flow Rate 1.0 05/17/16 07:00 Temp 98.0 98.0 Pulse 75 Resp 18 B/P 129/78 Pulse Ox 94 O2 Delivery Room Air Intake and Output 05/16/16 05/16/16 05/17/16 15:00 23:00 07:00 Intake Total 200 ml 350 ml 1300 ml Balance 200 ml 350 ml 1300 ml EZEKIEL MA MD May 17, 2016 09:00
--- NOTE | 2016-05-17 10:08 | PDOC ---
Infectious Disease Note Subjective Subjective feeling better ROS ROS GEN: Denies fevers, chills, sweats HEENT: Denies blurred vision, sore throat CV: Denies chest pain RESP: Denies shortness of air, cough GI: Denies n/v/d NEURO: Denies confusion, dizziness MSK: Denies weakness, joint pain/swelling Vital Sign Vital Signs Vital Signs Date Time Temp Pulse Resp B/P Pulse Ox O2 Delivery O2 Flow Rate FiO2 05/17/16 07:00 98.0 75 18 129/78 94 Room Air 98.0 05/16/16 20:20 1.0 Physical Exam PHYSICAL EXAM GENERAL: NAD, Alert HEENT: PERRL, OC/OP NECK: Supple, no JVD, no LN LUNGS: Clear HEART: S1S2, no gallop, no murmur ABD: Soft, NT, no organomegaly, no rebound EXT: No edema, no cyanosis, left leg redness better 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, 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, no focal neurologic deficit SKIN: No rash IV: ok Labs Lab Laboratory Tests Test 05/16/16 11:50 05/17/16 05:50 White Blood Count 12.5x10^3/uL (4.0-11.0) 10.7x10^3/uL (4.0-11.0) Red Blood Count 4.10x10^6/uL (4.30-5.70) 3.81x10^6/uL (4.30-5.70) Hemoglobin 12.1g/dL (13.0-17.5) 11.2g/dL (13.0-17.5) Hematocrit 37.0% (39.0-53.0) 34.1% (39.0-53.0) Mean Corpuscular Volume 90fL (79-100) 90fL (79-100) Mean Corpuscular Hemoglobin 30pg (25-35) 30pg (25-35) Mean Corpuscular Hemoglobin Concent 33g/dL (31-37) 33g/dL (31-37) Red Cell Distribution Width 15.1% (11.5-14.5) 14.9% (11.5-14.5) Platelet Count 205x10^3/uL (140-400) 203x10^3/uL (140-400) Neutrophils (%) (Auto) 83% (31-73) 77% (31-73) Lymphocytes (%) (Auto) 6% (24-48) 11% (24-48) Monocytes (%) (Auto) 7% (0-9) 8% (0-9) Eosinophils (%) (Auto) 3% (0-3) 4% (0-3) Basophils (%) (Auto) 1% (0-3) 0% (0-3) Neutrophils # (Auto) 10.4x10^3uL (1.8-7.7) 8.3x10^3uL (1.8-7.7) Lymphocytes # (Auto) 0.8x10^3/uL (1.0-4.8) 1.1x10^3/uL (1.0-4.8) Monocytes # (Auto) 0.9x10^3/uL (0.0-1.1) 0.9x10^3/uL (0.0-1.1) Eosinophils # (Auto) 0.4x10^3/uL (0.0-0.7) 0.4x10^3/uL (0.0-0.7) Basophils # (Auto) 0.1x10^3/uL (0.0-0.2) 0.0x10^3/uL (0.0-0.2) Sodium Level 140mmol/L (136-145) 141mmol/L (136-145) Potassium Level 3.9mmol/L (3.5-5.1) 3.9mmol/L (3.5-5.1) Chloride Level 102mmol/L (98-107) 106mmol/L (98-107) Carbon Dioxide Level 28mmol/L (21-32) 27mmol/L (21-32) Anion Gap 10 (6-14) 8 (6-14) Blood Urea Nitrogen 13mg/dL (8-26) 9mg/dL (8-26) Creatinine 1.1mg/dL (0.7-1.3) 1.1mg/dL (0.7-1.3) Estimated GFR (Cockcroft-Gault) 70.3 70.3 Glucose Level 146mg/dL (70-99) 118mg/dL (70-99) Calcium Level 8.5mg/dL (8.5-10.1) 8.4mg/dL (8.5-10.1) Objective Assessment 1. Sepsis resolved 2. Cellulitis involving the left lower extremity. improved 3. Leukocytosis improved 4. Chronic lymphedema of the left lower extremity. 5. Acute kidney injury resolved 6. Hypertension. 7. History of depression. Plan Plan of Care spencer Mora/[place] zyvox await today's labs results D/w Dr Potter d/[place] home tomorrow GAEL BELTRÁN MD May 17, 2016 10:08
[2016-05-17] MEDS: POTASSIUM CHLORIDE 20 MEQ TABLET.ER. PO SCH ×2 (10:09→16:51)
[2016-05-17] MEDS: BUMETANIDE 1 MG TABLET PO SCH (10:09)
[2016-05-17 11:00] VITALS: BP 133/91
[2016-05-17 14:57] VITALS: BP 125/81
[2016-05-17 19:00] VITALS: BP 142/98
[2016-05-17] MEDS: HYDROCODONE/APAP 5/325MG TABLET. PO PRN (19:16)
[2016-05-17] MEDS: ARIPIPRAZOLE 5 MG TABLET. PO SCH (20:45)
[2016-05-17] MEDS: ATORVASTATIN CALCIUM 10 MG TABLET. PO SCH (20:45)
[2016-05-17 23:00] VITALS: BP 151/84
[2016-05-18] MEDS: PIPERACILLIN/TAZOBACTAM 3.375 GM in IV NORMAL SALINE 50ML 50 ML IV SCH ×2 (02:25→08:00)
[2016-05-18 06:16] LABS: BASO # 0.1 x10^3/uL (0.0-0.2); BASO % 1 % (0-3); EOS % 8 % (0-3); HEMATOCRIT 33.2 % (39.0-53.0); HEMOGLOBIN 10.9 g/dL (13.0-17.5); LYMPH # 1.4 x10^3/uL (1.0-4.8); LYMPH % 21 % (24-48); MEAN CORPUSCULAR HEMOGLOBIN 30 pg (25-35); MEAN CORPUSCULAR HGB CONC 33 g/dL (31-37); MEAN CORPUSCULAR VOLUME 91 fL (79-100); MONO % 10 % (0-9); NEUT % 61 % (31-73); PLATELET COUNT 214 x10^3/uL (140-400); RED BLOOD COUNT 3.64 x10^6/uL (4.30-5.70); RED CELL DISTRIBUTION WIDTH 14.8 % (11.5-14.5); WHITE BLOOD COUNT 6.7 x10^3/uL (4.0-11.0)
[2016-05-18 06:20] LABS: CALCIUM 8.7 mg/dL (8.5-10.1); GFR 78.5; POTASSIUM 3.8 mmol/L (3.5-5.1)
[2016-05-18 07:00] VITALS: BP 138/91
--- NOTE | 2016-05-18 08:44 | PDOC ---
PROGRESS NOTES Subjective Subjective feels well. 1 loose stool. afebrile. lab reviewed. lefl leg erythema better. Objective Objective Vital Signs Date Time Temp Pulse Resp B/P Pulse Ox O2 Delivery O2 Flow Rate FiO2 05/18/16 07:00 97.5 68 20 138/91 93 Room Air 97.5 05/17/16 08:00 1.0 Intake and Output 05/18/16 07:00 Intake Total 480 ml Balance 480 ml Intake Oral 480 ml # Voids 3 Physical Exam Abdomen: Soft Heart: Normal S1, Normal S2 Extremities: Other (lymphedema elft leg) General: Alert HEENT: Atraumatic Lungs: Clear to auscultation Neuro: Normal speech Psych/Mental Status: Mental status NL Skin: Other (erythema left leg better. no redness in thigh) Assessment Assessment Problems Medical Problems:1. Sepsis resolved 2. Cellulitis involving the left lower extremity. improved 3. Leukocytosis improved 4. Chronic lymphedema of the left lower extremity. 5. Acute kidney injury resolved 6. Hypertension. 7. History of depression. (1) Cellulitis Status: Acute (2) Sepsis Status: Acute Plan Plan of Care switch to keflex d/c picc home today start valsartan Comment Review of Relevant I have reviewed the following items karen (where applicable) has been applied. Labs Laboratory Tests Test 05/16/16 11:50 05/17/16 05:50 05/18/16 06:05 White Blood Count 12.5x10^3/uL (4.0-11.0) 10.7x10^3/uL (4.0-11.0) 6.7x10^3/uL (4.0-11.0) Red Blood Count 4.10x10^6/uL (4.30-5.70) 3.81x10^6/uL (4.30-5.70) 3.64x10^6/uL (4.30-5.70) Hemoglobin 12.1g/dL (13.0-17.5) 11.2g/dL (13.0-17.5) 10.9g/dL (13.0-17.5) Hematocrit 37.0% (39.0-53.0) 34.1% (39.0-53.0) 33.2% (39.0-53.0) Mean Corpuscular Volume 90fL (79-100) 90fL (79-100) 91fL (79-100) Mean Corpuscular Hemoglobin 30pg (25-35) 30pg (25-35) 30pg (25-35) Mean Corpuscular Hemoglobin Concent 33g/dL (31-37) 33g/dL (31-37) 33g/dL (31-37) Red Cell Distribution Width 15.1% (11.5-14.5) 14.9% (11.5-14.5) 14.8% (11.5-14.5) Platelet Count 205x10^3/uL (140-400) 203x10^3/uL (140-400) 214x10^3/uL (140-400) Neutrophils (%) (Auto) 83% (31-73) 77% (31-73) 61% (31-73) Lymphocytes (%) (Auto) 6% (24-48) 11% (24-48) 21% (24-48) Monocytes (%) (Auto) 7% (0-9) 8% (0-9) 10% (0-9) Eosinophils (%) (Auto) 3% (0-3) 4% (0-3) 8% (0-3) Basophils (%) (Auto) 1% (0-3) 0% (0-3) 1% (0-3) Neutrophils # (Auto) 10.4x10^3uL (1.8-7.7) 8.3x10^3uL (1.8-7.7) 4.1x10^3uL (1.8-7.7) Lymphocytes # (Auto) 0.8x10^3/uL (1.0-4.8) 1.1x10^3/uL (1.0-4.8) 1.4x10^3/uL (1.0-4.8) Monocytes # (Auto) 0.9x10^3/uL (0.0-1.1) 0.9x10^3/uL (0.0-1.1) 0.6x10^3/uL (0.0-1.1) Eosinophils # (Auto) 0.4x10^3/uL (0.0-0.7) 0.4x10^3/uL (0.0-0.7) 0.5x10^3/uL (0.0-0.7) Basophils # (Auto) 0.1x10^3/uL (0.0-0.2) 0.0x10^3/uL (0.0-0.2) 0.1x10^3/uL (0.0-0.2) Sodium Level 140mmol/L (136-145) 141mmol/L (136-145) 139mmol/L (136-145) Potassium Level 3.9mmol/L (3.5-5.1) 3.9mmol/L (3.5-5.1) 3.8mmol/L (3.5-5.1) Chloride Level 102mmol/L (98-107) 106mmol/L (98-107) 103mmol/L (98-107) Carbon Dioxide Level 28mmol/L (21-32) 27mmol/L (21-32) 28mmol/L (21-32) Anion Gap 10 (6-14) 8 (6-14) 8 (6-14) Blood Urea Nitrogen 13mg/dL (8-26) 9mg/dL (8-26) 6mg/dL (8-26) Creatinine 1.1mg/dL (0.7-1.3) 1.1mg/dL (0.7-1.3) 1.0mg/dL (0.7-1.3) Estimated GFR (Cockcroft-Gault) 70.3 70.3 78.5 Glucose Level 146mg/dL (70-99) 118mg/dL (70-99) 112mg/dL (70-99) Calcium Level 8.5mg/dL (8.5-10.1) 8.4mg/dL (8.5-10.1) 8.7mg/dL (8.5-10.1) Laboratory Tests Test 05/18/16 06:05 White Blood Count 6.7x10^3/uL (4.0-11.0) Red Blood Count 3.64x10^6/uL (4.30-5.70) Hemoglobin 10.9g/dL (13.0-17.5) Hematocrit 33.2% (39.0-53.0) Mean Corpuscular Volume 91fL (79-100) Mean Corpuscular Hemoglobin 30pg (25-35) Mean Corpuscular Hemoglobin Concent 33g/dL (31-37) Red Cell Distribution Width 14.8% (11.5-14.5) Platelet Count 214x10^3/uL (140-400) Neutrophils (%) (Auto) 61% (31-73) Lymphocytes (%) (Auto) 21% (24-48) Monocytes (%) (Auto) 10% (0-9) Eosinophils (%) (Auto) 8% (0-3) Basophils (%) (Auto) 1% (0-3) Neutrophils # (Auto) 4.1x10^3uL (1.8-7.7) Lymphocytes # (Auto) 1.4x10^3/uL (1.0-4.8) Monocytes # (Auto) 0.6x10^3/uL (0.0-1.1) Eosinophils # (Auto) 0.5x10^3/uL (0.0-0.7) Basophils # (Auto) 0.1x10^3/uL (0.0-0.2) Sodium Level 139mmol/L (136-145) Potassium Level 3.8mmol/L (3.5-5.1) Chloride Level 103mmol/L (98-107) Carbon Dioxide Level 28mmol/L (21-32) Anion Gap 8 (6-14) Blood Urea Nitrogen 6mg/dL (8-26) Creatinine 1.0mg/dL (0.7-1.3) Estimated GFR (Cockcroft-Gault) 78.5 Glucose Level 112mg/dL (70-99) Calcium Level 8.7mg/dL (8.5-10.1) Microbiology 05/15/16 Blood Culture - Preliminary, Resulted NO GROWTH AFTER 2 DAYS Medications Current Medications Sodium Chloride (Iv Sodium Chloride 0.9% 1000ml Bag) 1,000 ml @ 1,000 mls/hr 1X ONCE IV Last administered on 05/15/16t 06:00; Start 05/15/16 at 06:00; Stop 05/15/16 at 06:59; Status DC Iohexol (Omnipaque 300 Mg/ml) 75 ml 1X ONCE IV ; Start 05/15/16 at 07:00; Stop 05/15/16 at 07:01; Status DC Info (Do NOT chart on this entry -- for MONITORING) 1 each PRN DAILY PRN MC SEE COMMENTS; Start 05/15/16 at 07:00; Stop 05/17/16 at 06:59; Status DC Fentanyl Citrate (Fentanyl 2ml Vial) 50 mcg PRN Q15MIN PRN IV PAIN GREATER THAN 3/10 Last administered on 05/15/16 08:01; Start 05/15/16 at 07:00; Stop at 06:59; Status DC Ondansetron HCl 4 mg 4 mg 1X ONCE IV Last administered on 05/15/16 07:09; Start 05/15/16 at 07:15; Stop 05/15/16 at 07:16; Status DC Linezolid 300 ml @ 300 mls/hr Q12HR IV Last administered on 05/16/16 21:58; Start 05/15/16 at 21:00; Stop 05/17/16 at 10:08; Status DC Piperacillin Sod/ Tazobactam Sod 3.375 gm/Sodium Chloride 50 ml @ 100 mls/hr Q6H IV Last administered on 05/18/16 02:25; Start 05/15/16 at 14:00 Linezolid 300 ml @ 300 mls/hr ONCE ONCE IV Last administered on 05/15/16 10: 00; Start 05/15/16 at 08:45; Stop 05/15/16 at 09:44; Status DC Piperacillin Sod/ Tazobactam Sod/ Sodium Chloride (Zosyn/Iv Sodium Chloride 0.9 % 50ml) 50 ml @ 100 mls/hr 1X ONCE IV Last administered on 05/15/16 09:15; Start 05/15/16 at 08:45; Stop 05/15/16 at 09:14; Status DC Ondansetron HCl (Zofran) 4 mg PRN Q8HRS PRN IV NAUSEA/VOMITING; Start 05/15/16 at 09:00; Stop 05/16/16 at 08:59; Status DC Fentanyl Citrate 50 mcg 50 mcg PRN Q2HR PRN IV PAIN; Start 05/15/16 at 09:00; Stop 05/16/16 at 08:59; Status DC Sodium Chloride (Iv Sodium Chloride 0.9% 1000ml Bag) 1,000 ml @ 125 mls/hr Q8H IV Last administered on 05/15/16 11:12; Start 05/15/16 at 08:56; Stop at 08:55; Status DC Acetaminophen (Tylenol) 650 mg PRN Q4HRS PRN PO FEVER; Start 05/15/16 at 09:00 ; Stop 05/15/16 at 12:10; Status DC Escitalopram Oxalate (Lexapro) 40 mg DAILY PO Last administered on 05/17/16 08 :20; Start 05/15/16 at 12:30 Acetaminophen 650 mg 650 mg PRN Q4HRS PRN PO MILD PAIN / TEMP; Start 05/15/16 at 12:00 Sodium Chloride (Iv Sodium Chloride 0.9% 1000ml Bag) 1,000 ml @ 75 mls/hr [id number] IV Last administered on 05/17/16 05:47; Start 05/15/16 at 14:30; Stop 05/17/16 at 08:57; Status DC Aripiprazole (Abilify) 5 mg QHS PO Last administered on 05/17/16 20:45; Start 05/15/16 at 21:00 Atorvastatin Calcium (Lipitor) 10 mg QHS PO Last administered on 05/17/16 20: 45; Start 05/15/16 at 21:00 Acetaminophen/ Hydrocodone Bitart (Lortab 5/325) 2 tab PRN Q4HRS PRN PO SEVERE PAIN Last administered on 05/17/16 19:16; Start 05/15/16 at 22:30 Acetaminophen/ Hydrocodone Bitart (Lortab 5/325) 1 tab PRN Q4HRS PRN PO MODERATE PAIN; Start 05/15/16 at 22:30 Lidocaine/Sodium Bicarbonate 20 ml 20 ml STK-MED ONCE IJ ; Start 05/16/16 at 11: 28; Stop 05/16/16 at 11:29; Status DC Heparin Sodium/ Sodium Chloride 500 ml @ As Directed STK-MED ONCE .ROUTE ; Start 05/16/16 at 11:28; Stop 05/16/16 at 11:29; Status DC Lorazepam (Ativan) 0.5 mg PRN Q8HRS PRN PO ANXIETY / AGITATION Last administered on 05/16/16 23:08; Start 05/16/16 at 11:45 Lidocaine/Sodium Bicarbonate (Buffered Lidocaine 1%) 3 ml 1X ONCE IJ Last administered on 05/16/16 12:14; Start 05/16/16 at 12:15; Stop 05/16/16 at 12:16 ; Status DC Heparin Sodium (Porcine) (Hep Lock Adult) 500 unit 1X ONCE IV ; Start 05/16/16 at 12:15; Stop 05/16/16 at 12:16; Status DC Heparin Sodium/ Sodium Chloride 1,000 unit 1X ONCE IART Last administered on 12:17; Start 05/16/16 at 12:15; Stop 05/16/16 at 12:17; Status DC Bumetanide (Bumex) 1 mg DAILY PO Last administered on 05/17/16 10:09; Start at 09:00 Potassium Chloride (Klor-Con) 20 meq BIDWMEALS PO Last administered on 16:51; Start 05/17/16 at 09:00 Active Scripts Active Hydrocodone-Apap 5-325 (Hydrocodone Bit/Acetaminophen) 1 Each Tablet 1 Tab PO PRN Q6HRS PRN Keflex (Cephalexin) 500 Mg Capsule 1 Cap PO BID Diovan (Valsartan) 160 Mg Tablet 320 Mg NG DAILY Klor-Con M20 (Potassium Chloride) 20 Meq Tablet.er 20 Meq PO BIDWMEALS Nystop (Nystatin) 1 Dom Dom 1 Dom TP BID Morphine Sulfate 15 Mg Tablet 15 Mg PO Q6HRS PRN Trandate (Labetalol Hcl) 200 Mg Tablet 200 Mg PO BID [Hydrochlorothiazide] 25 MG Tablet 25 Mg PO DAILY [Fentanyl] 1 PATCH Patch 1 Patch TD Q3DAYS Pepcid (Famotidine) 20 Mg Tablet 20 Mg NG BID Norvasc (Amlodipine Besylate) 10 Mg Tablet 10 Mg PO DAILY Reported Escitalopram Oxalate 20 Mg Tablet 1 Tab PO DAILY Vitals/I & O Vital Sign - Last 24 Hours 05/17/16 05/17/16 05/17/16 05/17/16 11:00 14:57 19:00 19:16 Temp 98.3 98.6 98.1 98.3 98.6 98.1 Pulse 73 78 71 Resp 18 18 20 18 B/P 133/91 125/81 142/98 Pulse Ox 94 94 92 O2 Delivery Room Air Room Air Room Air Room Air 05/17/16 05/18/16 23:00 07:00 Temp 98.4 97.5 98.4 97.5 Pulse 69 68 Resp 20 20 B/P 151/84 138/91 Pulse Ox 96 93 O2 Delivery Room Air Room Air Intake and Output 05/17/16 05/17/16 05/18/16 15:00 23:00 07:00 Intake Total 360 ml 120 ml Balance 360 ml 120 ml EZEKIEL MA MD May 18, 2016 08:44
--- NOTE | 2016-05-18 08:46 | DISCH ---
DISCHARGE INSTRUCTIONS Condition on Discharge Condition on Discharge: Stable Activity After Discharge Activity Instructions for Disc: Resume previous activity Diet after Discharge Diet after Discharge: Regular Contacting the [facility] after DC Call your doctor for: If your condition worsens Follow-Up Follow up with: dr. ma next week EZEKIEL MA MD May 18, 2016 08:46
[2016-05-18] MEDS ORDERED: ARIP5TAB6 PO (08:50)
[2016-05-18] MEDS ORDERED: ATOR10TA60 PO (08:50)
[2016-05-18] MEDS ORDERED: CEPH250C PO (08:50)
[2016-05-18] MEDS ORDERED: BUME1TAB PO (08:50)
[2016-05-18] MEDS ORDERED: LORA0.5T96 PO (08:50)
[2016-05-18] MEDS ORDERED: ESCI10TA PO (08:50)
--- NOTE | 2016-05-18 08:54 | PDOC ---
Provider Note Provider Note discharge summary dictated # [id number] EZEKIEL MA MD May 18, 2016 08:54
[2016-05-18] MEDS: BUMETANIDE 1 MG TABLET PO SCH (08:56)
[2016-05-18] MEDS: ESCITALOPRAM 10 MG TABLET. PO SCH (08:57)
[2016-05-18] MEDS: POTASSIUM CHLORIDE 20 MEQ TABLET.ER. PO SCH (08:57)
[2016-05-18] MEDS ORDERED: CEPHALEXIN 250 MG CAPSULE PO SCH (09:00)
--- NOTE | 2016-05-18 10:30 | DS ---
DATE OF DISCHARGE: 05/18/2016 TEACHER RESOURCE: Dr. Mayank Salcedo. FINAL DIAGNOSES: 1. Sepsis secondary to cellulitis. 2. Cellulitis of the left leg. 3. Chronic lymphedema of the left lower extremity 4. Leukocytosis. 5. Acute kidney injury secondary to sepsis and dehydration, resolved. 6. Hypertension. 7. History of depression. HOSPITAL COURSE: The patient is a 50-year-old white male, with a history of hypertension and chronic lymphedema of the left leg, who noted the onset of muscle aches and bilateral flank pain and some mild dysuria and fever and chills on the morning of admission, sought help in [facility] Emergency Room. His white count was 20,000. Urinalysis showed no pyuria. Chest x-ray was clear. He had some erythema in his left leg up to his thigh consistent with cellulitis of the left leg. Blood cultures were ordered and the blood cultures were negative. CAT scan of the abdomen and pelvis did not show any acute abnormality; some retroperitoneal lymph nodes that were mildly enlarged, thought to be reactive, but no pathological lymph nodes. His influenza screen was negative. He was started with IV Zyvox and Zosyn. Zyvox was discontinued. Blood cultures were negative. Seen in consultation by Dr. Mayank Salcedo of Infectious Disease. For his acute kidney injury, he received IV hydration and his renal function normalized. His blood pressure was a little elevated today, so we will restart his valsartan 160 mg every day which he takes at home. The patient's cellulitis improved. His fever resolved. His renal function normalized. We will discontinue his IV Zosyn today and put him on Keflex 500 mg q.i.d. for 7 more days. He will be dismissed to home today on Abilify 5 mg at bedtime, AndroGel 1.62% one packet every morning, atorvastatin 10 mg at bedtime, Bumex 1 mg every day, Lexapro he takes 40 mg daily, multiple vitamin every day, Pepcid 20 mg every day p.r.n., potassium chloride 20 mEq b.i.d., valsartan 160 mg every day, Ventolin inhaler p.r.n., and also cephalexin 500 mg q.i.d. for 7 days. He will follow up and see Dr. Potter in the office next week. Elevate his legs. EZEKIEL POTTER MD DR: PEACE/pietro JOB#: [id number] / [id number]
[2016-05-18 10:58] VITALS: BP 151/100
== END 2016-05-18 12:21 | disposition home or self-care (01) | DRG 872 ==
LOC: ER 04:31 → ED HOLD 08:25 → 5 SOUTH 11:19
PROVIDERS: ADMIT Internal Medicine; ATTEND Internal Medicine
PROC: 05HM33Z Insertion of Infusion Device into Right Internal Jugular Vein, Percutaneous Approach (ICD-10-PCS; principal; 2016-05-16)
PROC: B5131ZA Fluoroscopy of Right Jugular Veins using Low Osmolar Contrast, Guidance (ICD-10-PCS; 2016-05-16)
PROC: B543ZZA Ultrasonography of Right Jugular Veins, Guidance (ICD-10-PCS; 2016-05-16)
DX: A41.9 Sepsis, unspecified organism (principal); L03.116 Cellulitis of left lower limb; N17.9 Acute kidney failure, unspecified; I10 Essential (primary) hypertension; Z79.899 Other long term (current) drug therapy; Z87.891 Personal history of nicotine dependence; Z88.1 Allergy status to other antibiotic agents; Z88.8 Allergy status to other drugs, medicaments and biological substances
CPT/HCPCS: 36415; 36556; 71010; 74176; 76937; 77001; 80048; 80076; 81001; 83605; 83690; 84484; 85007; 85027; 87040; 87804; 93005; 93971; 96361; 96365; 96375; C1892; J2020; J2405; J2543; J3010; J7030; 99285-25

== ENCOUNTER 2017-03-29 13:07 | Inpatient (IN) | payer OTHER ==
[2017-03-29] MEDS ORDERED: ALBUTEROL SULFATE 2.5 MG/3 ML NEBU. NEB ×2 (13:45)
[2017-03-29] MEDS ORDERED: ACETAMINOPHEN 325 MG TABLET. PO ×2 (13:45)
[2017-03-29] MEDS ORDERED: AZITHROMYCIN 500 MG in IV NORMAL SALINE 250ML 250 ML IV (14:00)
[2017-03-29 14:56] LABS: BASO % 0 % (0-3); EOS # 0.1 x10^3/uL (0.0-0.7); EOS % 1 % (0-3); HEMATOCRIT 37.8 % (39.0-53.0); HEMOGLOBIN 12.7 g/dL (13.0-17.5); LYMPH # 0.5 x10^3/uL (1.0-4.8); LYMPH % 6 % (24-48); MEAN CORPUSCULAR HEMOGLOBIN 31 pg (25-35); MEAN CORPUSCULAR HGB CONC 34 g/dL (31-37); MEAN CORPUSCULAR VOLUME 91 fL (79-100); MONO # 0.6 x10^3/uL (0.0-1.1); MONO % 6 % (0-9); NEUT # 8.5 x10^3uL (1.8-7.7); NEUT % 88 % (31-73); PLATELET COUNT 177 x10^3/uL (140-400); RED BLOOD COUNT 4.15 x10^6/uL (4.30-5.70); RED CELL DISTRIBUTION WIDTH 13.7 % (11.5-14.5); WHITE BLOOD COUNT 9.7 x10^3/uL (4.0-11.0)
[2017-03-29 14:58] LABS: ADD MAN DIFF? YES
[2017-03-29 15:14] LABS: ANION GAP 6 (6-14); BLOOD UREA NITROGEN 20 mg/dL (8-26); BUN/CREATININE RATIO 13 (6-20); CALCIUM 8.4 mg/dL (8.5-10.1); CARBON DIOXIDE 28 mmol/L (21-32); CHLORIDE 97 mmol/L (98-107); CREATININE 1.6 mg/dL (0.7-1.3); GFR 45.4; GLUCOSE 154 mg/dL (70-99); POTASSIUM 4.3 mmol/L (3.5-5.1); SODIUM 131 mmol/L (136-145)
[2017-03-29 15:20] LABS: ALBUMIN 3.6 g/dL (3.4-5.0); ALBUMIN/GLOBULIN RATIO 0.9 (1.0-1.7); ALK PHOS 53 U/L (46-116); ALT (SGPT) 33 U/L (16-63); AST (SGOT) 25 U/L (15-37); TOTAL BILIRUBIN 0.7 mg/dL (0.2-1.0); TOTAL PROTEIN 7.5 g/dL (6.4-8.2)
[2017-03-29 15:22] LABS: TROPONINI 0.026 ng/mL (0.000-0.055)
[2017-03-29 15:27] LABS: CKMB INDEX 1.5 % (0-4); CKMB MASS 1.9 ng/mL (0.0-3.6); CREATINE KINASE 123 U/L (39-308)
[2017-03-29] MEDS: IPRATRPIUM/ALBUTEROL 0.5/2.5MG 3 ML NEBU. NEB ×4 (16:05→20:33)
[2017-03-29 16:07] LABS: % BANDS 28 % (0-9); % LYMPHS 8 % (24-48); % MONOS 7 % (0-10); % SEGS 57 % (35-66); PLT ESTIMATE ADEQUATE (ADEQUATE)
[2017-03-29] MEDS ORDERED: 0.9 % SODIUM CHLORIDE 10 ML DISP.SYRIN. IV ×4 (16:15)
[2017-03-29] MEDS: cefTRIAXone IV Push 1 GM VIAL. IVP ×2 (16:25)
[2017-03-29] MEDS: AZITHROMYCIN IV (16:26)
[2017-03-29] MEDS: IV NORMAL SALINE 1000ML BAG 1,000 ML IV ×2 (16:26)
[2017-03-29] MEDS: DEXTROSE IV (16:26)
[2017-03-29] MEDS: NACL IV (16:26)
[2017-03-29 16:30] LABS: INFLUENZA A PATIENT NEGATIVE (NEGATIVE)
[2017-03-29 16:31] LABS: INFLUENZA B PATIENT POSITIVE (NEGATIVE); OBC FLU VALID
[2017-03-29] MEDS: BENZONATATE 100 MG CAPSULE. PO ×4 (16:48→21:17)
[2017-03-29] MEDS: OSELTAMIVIR 75 MG CAPSULE PO ×2 (16:48)
[2017-03-29] MEDS: methylPREDNISolone SOD SUCC PF 40 MG/ML VIAL. IV ×2 (16:49)
[2017-03-29] MEDS: ATORVASTATIN CALCIUM 10 MG TABLET. PO ×2 (21:17)
[2017-03-29] MEDS: ACETAMINOPHEN 325 MG TABLET. PO ×2 (21:18)
[2017-03-29] MEDS: LACTOBACILLUS RHAMNOSUS GG 1 CAPSULE. PO ×2 (21:18)
[2017-03-30] MEDS: methylPREDNISolone SOD SUCC PF 40 MG/ML VIAL. IV ×8 (00:03→21:09)
[2017-03-30] MEDS: IV NORMAL SALINE 1000ML BAG 1,000 ML IV ×4 (06:05→21:16)
[2017-03-30 06:17] LABS: ADD MAN DIFF? NO
[2017-03-30 06:46] LABS: BASO % 0 % (0-3); EOS % 0 % (0-3); HEMATOCRIT 38.3 % (39.0-53.0); HEMOGLOBIN 12.4 g/dL (13.0-17.5); LYMPH # 0.9 x10^3/uL (1.0-4.8); LYMPH % 6 % (24-48); MEAN CORPUSCULAR HEMOGLOBIN 30 pg (25-35); MEAN CORPUSCULAR HGB CONC 32 g/dL (31-37); MEAN CORPUSCULAR VOLUME 92 fL (79-100); MONO # 0.4 x10^3/uL (0.0-1.1); MONO % 3 % (0-9); NEUT # 13.9 x10^3uL (1.8-7.7); NEUT % 92 % (31-73); PLATELET COUNT 175 x10^3/uL (140-400); RED BLOOD COUNT 4.18 x10^6/uL (4.30-5.70); RED CELL DISTRIBUTION WIDTH 13.8 % (11.5-14.5); WHITE BLOOD COUNT 15.2 x10^3/uL (4.0-11.0)
[2017-03-30 06:57] LABS: ANION GAP 9 (6-14); BLOOD UREA NITROGEN 17 mg/dL (8-26); CALCIUM 8.7 mg/dL (8.5-10.1); CARBON DIOXIDE 27 mmol/L (21-32); CHLORIDE 102 mmol/L (98-107); CREATININE 1.1 mg/dL (0.7-1.3); GLUCOSE 167 mg/dL (70-99); SODIUM 138 mmol/L (136-145)
[2017-03-30] MEDS: IPRATRPIUM/ALBUTEROL 0.5/2.5MG 3 ML NEBU. NEB ×8 (08:09→19:04)
[2017-03-30] MEDS: LACTOBACILLUS RHAMNOSUS GG 1 CAPSULE. PO ×4 (09:58→21:08)
[2017-03-30] MEDS: CITALOPRAM 20 MG TABLET. PO ×2 (09:58)
[2017-03-30] MEDS: OSELTAMIVIR 75 MG CAPSULE PO ×4 (09:58→21:08)
[2017-03-30] MEDS: BENZONATATE 100 MG CAPSULE. PO ×6 (09:59→21:08)
[2017-03-30] MEDS: INSULIN ASPART 300 UNITS/3 ML INSULN.PEN SQ ×4 (12:00→17:50)
[2017-03-30] MEDS: AZITHROMYCIN IV (13:53)
[2017-03-30] MEDS: SODIUM CHLORIDE 0.9% IV (13:53)
[2017-03-30] MEDS: ACETAMINOPHEN 325 MG TABLET. PO ×2 (13:57)
[2017-03-30] MEDS: cefTRIAXone IV Push 1 GM VIAL. IVP ×2 (16:25)
[2017-03-30 17:14] LABS: POC GLUCOSE 172 mg/dL (70-99)
[2017-03-30] MEDS: ATORVASTATIN CALCIUM 10 MG TABLET. PO ×2 (21:08)
[2017-03-30 21:45] LABS: POC GLUCOSE 284 mg/dL (70-99)
[2017-03-31] MEDS ORDERED: diphenhydrAMINE 50 MG/ML VIAL IVP ×2 (00:45)
[2017-03-31] MEDS: diphenhydrAMINE HCL 25 MG CAPSULE PO ×4 (00:52→11:48)
[2017-03-31] MEDS: methylPREDNISolone SOD SUCC PF 40 MG/ML VIAL. IV ×4 (06:03→15:03)
[2017-03-31 06:21] LABS: ADD MAN DIFF? NO
[2017-03-31 06:37] LABS: BASO % 0 % (0-3); EOS % 0 % (0-3); HEMATOCRIT 36.2 % (39.0-53.0); HEMOGLOBIN 11.8 g/dL (13.0-17.5); LYMPH # 1.3 x10^3/uL (1.0-4.8); LYMPH % 9 % (24-48); MEAN CORPUSCULAR HEMOGLOBIN 30 pg (25-35); MEAN CORPUSCULAR HGB CONC 33 g/dL (31-37); MEAN CORPUSCULAR VOLUME 92 fL (79-100); MONO # 0.6 x10^3/uL (0.0-1.1); MONO % 4 % (0-9); NEUT % 87 % (31-73); PLATELET COUNT 194 x10^3/uL (140-400); RED BLOOD COUNT 3.95 x10^6/uL (4.30-5.70); RED CELL DISTRIBUTION WIDTH 13.8 % (11.5-14.5); WHITE BLOOD COUNT 14.9 x10^3/uL (4.0-11.0)
[2017-03-31 06:47] LABS: ANION GAP 8 (6-14); BLOOD UREA NITROGEN 17 mg/dL (8-26); CALCIUM 8.6 mg/dL (8.5-10.1); CARBON DIOXIDE 27 mmol/L (21-32); CHLORIDE 102 mmol/L (98-107); GFR 78.2; GLUCOSE 171 mg/dL (70-99); POTASSIUM 4.3 mmol/L (3.5-5.1); SODIUM 137 mmol/L (136-145)
[2017-03-31 07:57] LABS: POC GLUCOSE 209 mg/dL (70-99)
[2017-03-31] MEDS: IPRATRPIUM/ALBUTEROL 0.5/2.5MG 3 ML NEBU. NEB ×6 (08:23→15:38)
[2017-03-31] MEDS: LACTOBACILLUS RHAMNOSUS GG 1 CAPSULE. PO ×2 (08:26)
[2017-03-31] MEDS: BENZONATATE 100 MG CAPSULE. PO ×4 (08:26→15:02)
[2017-03-31] MEDS: OSELTAMIVIR 75 MG CAPSULE PO ×2 (08:27)
[2017-03-31] MEDS: CITALOPRAM 20 MG TABLET. PO ×2 (08:27)
[2017-03-31] MEDS: INSULIN ASPART 300 UNITS/3 ML INSULN.PEN SQ ×4 (08:33→12:44)
[2017-03-31 11:31] LABS: POC GLUCOSE 170 mg/dL (70-99)
[2017-03-31] MEDS: ACETAMINOPHEN 325 MG TABLET. PO ×2 (11:48)
[2017-03-31] MEDS ORDERED: AZITHROMYCIN IV (14:00)
[2017-03-31] MEDS ORDERED: NORMAL SALINE IV (14:00)
[2017-03-31] MEDS: cefTRIAXone IV Push 1 GM VIAL. IVP ×2 (15:02)
[2017-03-31] MEDS: SODIUM CHLORIDE 0.9% IV (15:03)
[2017-03-31] MEDS: AZITHROMYCIN IV (15:03)
== END 2017-03-31 19:27 | disposition home or self-care (01) | DRG 682 ==
LOC: 6 SOUTH 13:07
DX: N17.9 Acute kidney failure, unspecified (principal); J10.00 Influenza due to other identified influenza virus with unspecified type of pneumonia; E87.1 Hypo-osmolality and hyponatremia; R73.9 Hyperglycemia, unspecified; E66.01 Morbid (severe) obesity due to excess calories; E78.5 Hyperlipidemia, unspecified; F32.9 Major depressive disorder, single episode, unspecified; I10 Essential (primary) hypertension; I89.0 Lymphedema, not elsewhere classified; J10.1 Influenza due to other identified influenza virus with other respiratory manifestations; F41.9 Anxiety disorder, unspecified; J20.9 Acute bronchitis, unspecified; N52.9 Male erectile dysfunction, unspecified; T38.0X5A Adverse effect of glucocorticoids and synthetic analogues, initial encounter; Z80.0 Family history of malignant neoplasm of digestive organs; Z80.8 Family history of malignant neoplasm of other organs or systems; Z98.1 Arthrodesis status; Z68.37 Body mass index [BMI] 37.0-37.9, adult
CPT/HCPCS: 36415; 36569; 71046; 80048; 80053; 82553; 82962; 84484; 85007; 85025; 87040; 87070; 87205; 87804; 87804-59; 93005; 94640; 94760; J0456; J0696; J1815; J2920; J7030; J7620; Q0163

== ENCOUNTER → 2019-08-23 | Outpatient (CLI) | payer OTHER ==
[2017-12-06 11:15] VITALS: BP 159/99
[~2019-08-23] MED LIST changes: +AMLO10TA8 PO; +ARIP5TAB13 PO; -ARIP5TAB6 PO; +ATOR10TA60 PO; +AZIT250T PO; +BENZ-8 PO; +BUME1TAB3 PO; -BUPR300T4 PO; +BUPR300T92 PO; +CARV6.2511 PO; +CEPH250C PO; -ESCI20TA PO; +ESCITALOPRAM OX10 MG PO; +ESCITALOPRAM OX20 MG PO; -GABA-586 PO; +GABA300C18 PO; -HYDR-2666 PO; +HYDR-2761 PO; +LEXAPRO20 MG PO; +LORA0.5T96 PO; +METH-37 PO; +MORP-15 PO; -MORP15TA3 PO; +MULT-629 PO; -MULT-91 PO; +OSEL75CA PO; +POLY17PO29 PO; -POLY17PO5 PO; +PRED20TA PO; +SENN-161 PO; -SENN1TAB7 PO; +SIMV40TA18 PO; -SIMV40TA3 PO; +TORS20TA2 PO; +TRAZ-118 PO; -TRAZ50TA15 PO; +VALS160T3 PO
--- NOTE | 2019-08-23 14:46 | RAD ---
MRI Cervical Spine Without Contrast History:Neck pain, right arm radiculopathy for 8 months Technique: Multiplanar, multi sequential noncontrast MR imaging was performed of the cervical spine. Comparison: None Findings: There is some motion degradation. There is anterior cervical fusion hardware C6-C7. Exam does not accurately evaluate integrity of hardware, osseous interbody fusion not clearly apparent. Cervical cord caliber is within normal limits, no defined or expansile signal abnormality. Cervical vertebral body stature is maintained. AP alignment is within normal limits. There is mowg-ri-nzyosfhm degenerative disc disease at C5-6 and minimally at C7-T1. There is a 1 cm T2 hyperintense lesion of the left thyroid gland. Not fully evaluated, there is at least [id number] left maxillary sinus mucosal thickening, minimally on the right. C2-C3: Spinal canal and right neural foramen are adequate. Facet degenerative change contributes to mild posterior narrowing of the left neural foramen. C3-C4: There is bilateral facet degenerative change. There is shallow posterior central protrusion. Central canal is minimally narrowed about 9 to 10 mm. There is very mild narrowing of the right neural foramen, left neural foramen overall adequate. C4-C5: There is severe facet degenerative change bilaterally. There is negligible disc osteophyte complex. Central canal is borderline about 10 mm. There is minimal neural foramina compromise bilaterally. C5-C6: There is minimal disc osteophyte complex and superimposed bulge/broad protrusion about 2 mm AP with indentation upon the ventral thecal sac, central canal narrowed to about 8 to 9 mm. There is also mild narrowing of the far right lateral recess. There is bilateral facet hypertrophic change. There is mild uncovertebral degenerative change. There is azzu-li-kkudfprc narrowing of the proximal right neural foramen, overall mild narrowing on the left. C6-C7: Central canal is not significantly narrowed. There is probable minimal narrowing of the left neural foramen by osteophytes and facet degenerative change, right neural foramen also likely minimally narrowed. C7-T1: Spinal canal is adequate. There is right uncovertebral degenerative change, minimal narrowing of the right neural foramen. Left neural foramen is overall adequate. T1-2: Left facet and uncovertebral degenerative change contributes to likely [id number] inferior narrowing of the left neural foramen. Impression: 1. There is anterior cervical fusion hardware at C6-7. There is mild spinal stenosis C3-C4 and C5-C6. Facet and uncovertebral degenerative change contributes to suspected neural foramina compromise, likely [id number] narrowing on the right at C5-6 and on the left at T1-T2 and other minimal narrowing as stated. There is mild to moderate C5-6 degenerative disc disease, to a lesser degree at C7-T1. 2. There is 1 cm T2 hyperintense lesion of the left thyroid gland. 3. There is left greater than right maxillary sinus mucosal thickening, not fully evaluated. Electronically signed by: Terrance Laura MD (08/23/2019 2:44 PM) [id number]
== END | disposition home or self-care (01) ==
LOC: MRI 13:44
PROVIDERS: ATTEND Internal Medicine
DX: M47.892 Other spondylosis, cervical region (principal); M54.12 Radiculopathy, cervical region; M50.33 Other cervical disc degeneration, cervicothoracic region; M48.03 Spinal stenosis, cervicothoracic region; M43.22 Fusion of spine, cervical region; E07.89 Other specified disorders of thyroid
CPT/HCPCS: 72141